=== PATIENT | male | born 1950 | race Caucasian/White ===

== ENCOUNTER 2018-01-16 13:04 | Emergency (ER) | payer BC ==
[2018-01-16 13:12] VITALS: BP 115/86; PULSE 73; TEMP 98; BMI 25.8
--- NOTE | 2018-01-16 13:20 | PDOC ---
History of Present Illness - General Chief Complaint: Pain, Acute Stated Complaint: LEFT SHOULDER PAIN Time Seen by Provider: 01/16/18 13:09 History Source: Patient Exam Limitations: No Limitations - History of Present Illness Initial Comments: 01/16/18 13:17 68 y/o male with fall on Wednesday, no LOC, concerned that he may have displace pacemaker. Hears popping noise. Has not taken anything for the pain. No fever or chills. No back pain or SOB. Denies pain down arm. Severity: mild Past History - Past Medical History Allergies/Adverse Reactions: Allergies Allergy/AdvReac Type Severity Reaction Status Date / Time No Known Allergies Allergy Verified 01/16/18 13:05 Home Medications: Ambulatory Orders Nebivolol [Bystolic -] 10 mg PO DAILY 11/11/12 Atorvastatin Ca [Lipitor] 80 mg PO HS 01/16/18 Diazepam [Valium] 5 mg PO ASDIR 01/16/18 Ramipril [Altace] 10 mg PO DAILY 01/16/18 Cardiac Disorders: Yes COPD: No - Surgical History Abdominal Surgery: Yes Cardiac Surgery: Yes (PACEMAKER; STENTS X 2) Cholecystectomy: Yes - Suicide/Smoking/Psychosocial Hx Smoking Status: Yes Smoking History: Current every day smoker Have you smoked in the past 12 months: Yes Number of Cigarettes Smoked Daily: 20 Information on smoking cessation initiated: Yes 'Breaking Loose' booklet given: 01/16/18 Hx Alcohol Use: No Drug/Substance Use Hx: No Substance Use Type: None Review of Systems - Review of Systems Able to Perform ROS?: Yes Is the patient limited Citizen Of [place] proficient: No Constitutional: No: Chills, Fever Respiratory: No: Cough, Shortness of Breath Cardiac (ROS): No: Chest Pain, Palpitations, Chest Tightness ABD/GI: No: Nausea, Vomiting Musculoskeletal: No: Back Pain All Other Systems: Reviewed and Negative *Physical Exam - Vital Signs Last Vital Signs Temp Pulse Resp BP Pulse Ox 98 F 73 18 115/86 95 01/16/18 13:05 01/16/18 13:05 01/16/18 13:05 01/16/18 13:05 01/16/18 13:05 - Physical Exam General Appearance: Yes: Nourished, Appropriately Dressed. No: Apparent Distress HEENT: positive: EOMI, AURELIO, Normal ENT Inspection, Normal Voice, Pharynx Normal Neck: positive: Trachea midline, Normal Thyroid, Supple, Other (no spinous process tenderness noted, full ROM). negative: Tender, Rigid Respiratory/Chest: positive: Chest Tender (reproducible tenderness to costochondral junction, anterior chest wall on palpation), Lungs Clear, Normal Breath Sounds Cardiovascular: positive: Regular Rhythm, Regular Rate, S1, S2. negative: Edema , JVD, Murmur Vascular Pulses: Femoral (R): 4+, Femoral (L): 4+, Carotid (R): 4+, Carotid (L) : 4+, Dorsalis-Pedis (R): 4+, Doralis-Pedis (L): 4+ Gastrointestinal/Abdominal: positive: Normal Bowel Sounds, Flat, Soft. negative : Tender, Organomegaly, Pulsatile Mass Lymphatic: negative: Adenopathy, Tenderness, Other Musculoskeletal: positive: Normal Inspection. negative: CVA Tenderness Extremity: positive: Normal Capillary Refill, Normal Inspection, Normal Range of Motion, Tender, Other (left shoulder full ROM, no tenderness no ecchymosis) Integumentary: positive: Normal Color, Dry, Warm Neurologic: positive: spring [employer] II-XII NML intact, Fully Oriented, Alert, Motor Strength 5/5 ED Treatment Course - ADDITIONAL ORDERS Additional order review: 01/16/18 13:20 chest pain secondary to fall, will obtain x-rays. 01/16/18 14:01 CXR: NAD, pacemaker in place Ribs: no fracture seen left shoulder: no fracture Dx: costochondritis Ice, rest, Motrin If worsen return to ER Pt is in agreement with plan *DC/Admit/Observation/Transfer Diagnosis at time of Disposition: Costochondritis, acute - Discharge Dispostion Disposition: HOME Condition at time of disposition: Stable Decision to Admit order: No - Referrals - Patient Instructions Printed Discharge Instructions: DI for Costochondritis Additional Instructions: Ice, Motrin, rest If pain persists consider CT chest Return to ER if worsen - Post Discharge Activity
== END 2018-01-16 14:11 | disposition home or self-care (01) ==
LOC: FER 13:04
PROC: 3E0234Z Introduction of Serum, Toxoid and Vaccine into Muscle, Percutaneous Approach (ICD-10-PCS; principal; 2018-01-16)
DX: Z45.018 Encounter for adjustment and management of other part of cardiac pacemaker (principal); M94.0 Chondrocostal junction syndrome [Tietze]; F17.210 Nicotine dependence, cigarettes, uncomplicated; Z95.5 Presence of coronary angioplasty implant and graft
CPT/HCPCS: 71046-TC-FY; 71101-TC-FY; 73030-TC-LT-FY; 99281-25